=== PATIENT | female | born 1990 | race African-American/Black ===

== ENCOUNTER 2017-07-15 01:01 | Emergency (ER) | payer SELFPAY ==
[~2017-07-15] VITALS: Ht 167.6 cm; Wt 91.0 kg
[2017-07-15 03:49] VITALS: BP 111/55
[2017-07-15 03:57] LABS: CLARITY URINE CLOUDY (CLEAR); COLOR URINE YELLOW (YELLOW); GLUCOSE URINE NEGATIVE (NEGATIVE); KETONES URINE TRACE (NEGATIVE); LEUKOCYTE ESTERASE URINE 3+ (NEGATIVE); NITRITE URINE NEGATIVE (NEGATIVE); OCCULT BLOOD URINE 3+ (NEGATIVE); PH URINE 5.5 (4.5-8.0); PROTEIN URINE 2+ (NEGATIVE); SPECIFIC GRAVITY URINE 1.025 (1.005-1.030); UROBILINOGEN URINE 0.2 E.U./dL (0.2-1.0)
[2017-07-15] MEDS ORDERED: CEPHALEXIN 500MG CAPSULE PO ONE (04:15)
== END 2017-07-15 04:32 | disposition home or self-care (01) ==
LOC: ER 01:38
DX: N39.0 Urinary tract infection, site not specified (principal)
CPT/HCPCS: 81001; 81025; 99283